=== PATIENT | female | born 1935 | race Caucasian/White ===

== ENCOUNTER 2021-09-30 08:48 | Emergency (ER) | payer MEDICARE, BC ==
[~2021-09-30] VITALS: Ht 152.4 cm; Wt 55.8 kg
--- NOTE | 2021-09-30 09:05 | NUR ---
PT IS IN ROOM #2B. DR ALBRIGHT EVALUATED THE PT.
--- NOTE | 2021-09-30 10:32 | NUR ---
PT WAS D/C'd TO HOME. D/C INSTRUCTIONS GIVEN TO THE PT BY DR ALBRIGHT.
[2021-09-30 10:33] VITALS: BP 136/72
== END 2021-09-30 10:35 | disposition home or self-care (01) ==
LOC: ER 08:48
DX: S52.601A Unspecified fracture of lower end of right ulna, initial encounter for closed fracture (principal); W01.0XXA Fall on same level from slipping, tripping and stumbling without subsequent striking against object, initial encounter; Y92.89 Other specified places as the place of occurrence of the external cause; Z88.5 Allergy status to narcotic agent; M85.831 Other specified disorders of bone density and structure, right forearm; R03.0 Elevated blood-pressure reading, without diagnosis of hypertension
CPT/HCPCS: 73110; A4663